=== PATIENT | female | born 1950 | race Caucasian/White ===

== ENCOUNTER 2017-08-14 11:27 | Observation (INO) | payer OTHER ==
[~2017-08-14] VITALS: Ht 165.1 cm; Wt 50.1 kg
[~2017-08-14 11:27] MED LIST: ALEN1TAB48 PO; FLUT1SPR5 EACH NARE; MECL-62 PO; TRAZ100T10 PO
[2017-08-14] MEDS ORDERED: MIDAZOLAM HCL 2 MG/2 ML VIAL IV ONE (12:00)
[2017-08-14] MEDS ORDERED: ONDANSETRON HCL 4 MG/2 ML VIAL IV ONE (12:00)
[2017-08-14] MEDS ORDERED: PROPOFOL 200 MG/20 ML AMP IV ONE (12:00)
[2017-08-14] MEDS ORDERED: ePHEDrine/NS 25 MG/5 ML SYR IV ONE (12:00)
[2017-08-14] MEDS ORDERED: MORPHINE SULFATE 4 MG/ML INJ IV ONE (12:00)
[2017-08-14] MEDS ORDERED: LIDOCAINE HCL 1% PF 5 ML SYRINGE OTHER ONE (12:00)
[2017-08-14] MEDS ORDERED: CHLORHEXIDINE GLUCONATE 2 % 1 PACK (2 CLOTHS) TOPICAL PRN (12:15)
[2017-08-14] MEDS ORDERED: LACTATED RINGER'S 1000 ML IV PRN (12:15)
[2017-08-14] MEDS ORDERED: POVIDONE IODINE 5% (ANTISEPSIS KIT) 4 APPLICATIONS EACH NARE PRN (12:15)
[2017-08-14] MEDS ORDERED: SODIUM CHLORID 0.9% 500 ML IV PRN (12:15)
[2017-08-14] MEDS ORDERED: METOPROLOL TARTRATE 25 MG TAB PO PRN (12:15)
[2017-08-14] MEDS ORDERED: VANCOMYCIN 1000 MG/NS 250 ML (for <70 kg) IV SCH ×2 (12:30)
[2017-08-14] MEDS ORDERED: CHLORHEXIDINE GLUCONATE 4% SOLN 120 ML BTL TOPICAL SCH (12:30)
[2017-08-14] MEDS ORDERED: ceFAZolin 2 GM PREMIX 50 ML IV SCH (12:30)
[2017-08-14] MEDS ORDERED: VITA500T83 PO (12:31)
[2017-08-14] MEDS ORDERED: VITA10002 PO (12:31)
[2017-08-14] MEDS ORDERED: CALC500T37 PO (12:31)
[2017-08-14] MEDS ORDERED: MULTTAB67 PO (12:31)
[2017-08-14] MEDS ORDERED: MULT-116 PO (12:31)
[2017-08-14] MEDS ORDERED: POTA8CAP PO (12:31)
[2017-08-14] MEDS ORDERED: LUTE6CAP2 PO (12:31)
[2017-08-14] MEDS ORDERED: CRAN400C PO (12:31)
[2017-08-14] MEDS ORDERED: LACTCAP8 PO (12:31)
--- NOTE | 2017-08-14 16:32 | PD.OP ---
cc: Dalton Islas Jr., MD Operative Report Date of Surgery: Aug 14, 2017 Preoperative Diagnosis: Left distal radius fracture, extra articular Postoperative Diagnosis: Same Procedure: Open reduction internal fixation left distal radius fracture Anesthesia: Gen. Surgeon: Dalton Islas Air Support Control Officer(s): Hospital staff Resident Surgeon: None Operation and Findings: Patient was seen and evaluated preoperatively and found to have an extra- articular LEFT displaced distal radius fracture. Informed consent was obtained after detailed discussion of risk and benefits including bleeding, infection, injury to arteries, nerves, and blood vessels, weakness and numbness of hand, and tendon rupture. Informed consent was obtained. Patient received IV antibiotics prior to incision. Timeout procedure was performed. Operative extremity was prepped with alcohol followed by Hibiclens and draped usual sterile fashion. A standard volar approach to the distal radius was utilized. A 3 inch incision was made over the FCR tendon. Tendon sheath was opened. Pronator quadratus was elevated up. The fracture site was now visualized. The fracture did [] have intra-articular extension. Traction was applied. The articular surface was reduced. Fracture fragments were manipulated to achieve excellent reduction. K wires were used to hold provisional fixation. Fluoroscopy confirmed appropriate alignment of fracture. A Synthes 2 column variable angle distal radius plate was selected. Plate was provisionally fixed to bone with K wires. 2.7 cortical screws were used to compress plate to bone. Fluoroscopy confirmed appropriate alignment of fracture with well-placed hardware. Multiple 2.4 locking screws were now placed distally. Screws were predrilled and measured for appropriate length. 1 additional screw was placed into the shaft. K wires were removed. Final fluoroscopy revealed excellent of fracture with well-placed hardware. The wound was thoroughly irrigated with sterile saline. Subcutaneous tissue was closed with 3-0 Vicryl and skin was closed with 3-0 nylon. Sterile dressings were applied with Xeroform, 4 x 4, soft roll , and a well padded volar splint. Patient was awakened and transferred to recovery room in stable condition IMPLANTS USED Synthes 2 column variable angle distal radius plate. POSTP-OP PLAN OF ACTIVITY Antibiotics Antiocoagulation: SCD, OOB Weight bearing status: NWB Dressing: do not change Dispo: today from PACU Dalton Islas Jr., MD Aug 14, 2017 16:32
[2017-08-14] MEDS ORDERED: PERC5TAB12 PO (16:35)
[2017-08-14] MEDS ORDERED: DO NOT ADM ANY ANTICOAGULANT DRUGS PRN (16:39)
[2017-08-14] MEDS ORDERED: MORPHINE SULFATE 4 MG/ML INJ IV PUSH PRN (16:45)
[2017-08-14] MEDS ORDERED: ONDANSETRON HCL 4 MG/2 ML VIAL IV PUSH PRN (16:45)
[2017-08-14] MEDS ORDERED: SODIUM CHLORIDE 0.9% FLUSH 10 ML FLUSH IV FLUSH PRN (16:45)
[2017-08-14] MEDS ORDERED: *morphine SULFATE 8 MG/ML PERIprocedure ONLY ONE (16:48)
--- NOTE | 2017-08-14 17:05 | RADRPT ---
EXAM DATE/TIME: 08/14/2017 16:09 [facility] COMPARISON: No previous studies available for comparison. INDICATIONS : Open reduction internal fixation of the left wrist. MEDICAL HISTORY : None. SURGICAL HISTORY : None. ENCOUNTER: Initial ACUITY: 1 day PAIN SCORE: Non-responsive. LOCATION: Left wrist. FINDINGS: The distal left radius has been open reduced and fixated with an extra medullary plate. Radiocarpal alignment is anatomic. Bony structures are otherwise intact. CONCLUSION: Satisfactory appearance of the distal left radius following ORIF. Bhargav Lozada MD on August 14, 2017 at 17:02 Board Certified Radiologist. This report was verified electronically.
[2017-08-14] MEDS ORDERED: *MEPERIDINE 25 MG INJ VIAL PERIprocedural Use ONLY ONE (17:12)
[2017-08-14] MEDS: oxyCODONE/ACETAMINOPHEN 5 MG/325 MG TAB PO PRN ×2 (18:17→23:23)
[2017-08-14 19:20] VITALS: BP 164/68; PULSE 83; RESP 18; TEMP 96.7; O2SAT 97
[2017-08-14] MEDS ORDERED: SODIUM CHLORIDE 0.9% FLUSH 10 ML FLUSH IV FLUSH SCH (21:00)
[2017-08-14 23:15] VITALS: BP 122/57; PULSE 86; RESP 18; TEMP 98.3; O2SAT 95
[2017-08-15 04:57] VITALS: BP 135/63; PULSE 82; RESP 18; TEMP 98.4; O2SAT 97
[2017-08-15 08:00] VITALS: BP 123/58; PULSE 65; RESP 19; TEMP 98; O2SAT 96
--- NOTE | 2017-08-15 11:50 | EKG ---
Date Performed: 08/14/2017 Time Performed: 13:06:01 PTAGE: 67 years EKG: Sinus rhythm WITH OCCASIONAL SUPRAVENTRICULAR PREMATURE COMPLEXES BORDERLINE ECG Compared to prior tracing no sig nificant change PREVIOUS TRACING : 06/05/2012 09.01 DOCTOR: Yobani Hadley Interpretating Date/Time 08/15/2017 11:49:27
== END 2017-08-15 11:29 | disposition home or self-care (01) ==
LOC: HSDC 11:27 → N06A 17:53
PROVIDERS: ADMIT Orthopaedic Surgery; ATTEND Orthopaedic Surgery
DX: S52.552A Other extraarticular fracture of lower end of left radius, initial encounter for closed fracture (principal); M19.90 Unspecified osteoarthritis, unspecified site; F17.200 Nicotine dependence, unspecified, uncomplicated; W19.XXXA Unspecified fall, initial encounter
CPT/HCPCS: 01830; 25607; 73100; 76000; 86850; 86900; 86901; 93005; 96374; C1713; G0378; J2175; J2250; J2270; J2405; J3010; J3370; J7050; J7120